=== PATIENT | female | born 1985 | race Caucasian/White ===

== ENCOUNTER → 2016-11-23 | Outpatient (CLI) | payer BC, OTHER ==
[~2016-11-23] MED LIST: PRENTAB26 PO
== END | disposition home or self-care (01) ==
LOC: C.PAPS 11:49
PROVIDERS: ATTEND Obstetrics & Gynecology
DX: Z01.419 Encounter for gynecological examination (general) (routine) without abnormal findings (principal)

== ENCOUNTER → 2017-10-10 | Outpatient (CLI) | payer OTHER ==
[~2017-10-10] MED LIST changes: +BCPILLS PO; +CIPR-255 PO; +CIPR1TAB11 PO
--- NOTE | 2017-10-10 17:32 | DIAGNOSTIC IMAGING REPORT ---
KUB HISTORY: Acute right-sided flank pain with fever. Concern for possible kidney stones. Prior left sided nephrectomy R10.9 Flank pain, [id number] Feverplease eval for right stone. P COMPARISON: None. FINDINGS: The bowel gas pattern is non-obstructive. Surgical clips project over the left hemiabdomen. There is no organomegaly. No right-sided nephrolithiasis or ureteral calculi identified. There is a punctate radiodensity which projects over the region of the inferior pole left kidney. There is moderate stool volume of the splenic flexure and descending colon. No pneumoperitoneum or pneumatosis. No fracture. Probable bone island of the right femoral neck, 11 mm. IMPRESSION: 1. No right-sided nephrolithiasis or ureteral calculi identified. 2. Moderate stool volume of the splenic flexure and descending colon obscures the left renal shadow. There is an associated punctate radiodensity which projects over the inferior pole left kidney suggesting fecal debris or small left-sided kidney stone. Electronically signed by: Chalino Maurer M.D. 10/10/2017 5:31 PM Dictated Date/Time: 10/10/2017 5:28 PM
[2017-10-10 17:35] LABS: BASO % 0.1 %; BASO ABS # 0.01 K/uL (0-0.2); HEMATOCRIT 38.6 % (37-47); HEMOGLOBIN 13.2 g/dL (12.0-16.0); IG# 0.04 K/uL (0.00-0.02); LYMPH % 6.3 %; LYMPH ABS # 1.15 K/uL (1.2-3.4); MEAN CELL VOLUME 88.9 fL (80-100); MEAN CORPUSCULAR HEMOGLOBIN 30.4 pg (25-34); MEAN CORPUSCULAR HGB CONC 34.2 g/dl (32-36); MEAN PLATELET VOLUME 11.2 fL (7.4-10.4); MONO % 6.4 %; MONO ABS # 1.18 K/uL (0.11-0.59); NEUT ABS # 15.98 K/uL (1.4-6.5); PLATELET COUNT 158 K/uL (130-400); RED CELL DISTRIBUTION WIDTH CV 12.6 % (11.5-14.5); WHITE BLOOD COUNT 18.36 K/uL (4.8-10.8)
[2017-10-10 18:01] LABS: BLOOD UREA NITROGEN 10 mg/dl (7-18); CALCIUM 8.6 mg/dl (8.5-10.1); CARBON DIOXIDE 29 mmol/L (21-32); CREATININE 1.15 mg/dl (0.60-1.20); GLUCOSE 136 mg/dl (70-99); POTASSIUM 3.2 mmol/L (3.5-5.1); SODIUM 136 mmol/L (136-145)
== END | disposition home or self-care (01) ==
LOC: C.RAD 16:59
PROVIDERS: ATTEND Nurse Practitioner
DX: R50.9 Fever, unspecified (principal); R10.9 Unspecified abdominal pain; R93.422 Abnormal radiologic findings on diagnostic imaging of left kidney

== ENCOUNTER → 2017-10-10 | Outpatient (CLI) | payer OTHER | END | disposition home or self-care (01) | LOC: C.LABSPEC 17:30 | PROVIDERS: ATTEND Nurse Practitioner | DX: R39.9 Unspecified symptoms and signs involving the genitourinary system (principal) ==

== ENCOUNTER 2017-10-11 10:59 | Inpatient (IN) | payer OTHER ==
[~2017-10-11] VITALS: Ht 160 cm; Wt 69.3 kg
[~2017-10-11 10:59] MED LIST changes: -BCPILLS PO; -CIPR-255 PO; -CIPR1TAB11 PO
[2017-10-11 11:45] VITALS: BP 109/73; PULSE 112; TEMP 36.8; O2SAT 99; Ht 160 cm; Wt 69.3 kg
[2017-10-11] MEDS ORDERED: CIPR1TAB11 PO (12:30)
[2017-10-11] MEDS ORDERED: BCPILLS PO (12:30)
[2017-10-11] MEDS ORDERED: CEFEPIME IV 2,000 MG in DEXTROSE 5% 100ML 100 ML IV ONE (13:03)
[2017-10-11] MEDS ORDERED: MAGNESIUM HYDROXIDE SUSP 30 ML UDC PO PRN (13:15)
[2017-10-11] MEDS ORDERED: OXYCODONE/ACETAMINOPHEN 5-325 TAB PO STA (13:19)
[2017-10-11] MEDS ORDERED: OXYCODONE/ACETAMINOPHEN 5-325 TAB ONE (13:22)
[2017-10-11] MEDS ORDERED: CEFEPIME IV 2,000 MG in SYRINGE 7.5 ML IV STA (13:22)
[2017-10-11] MEDS: SODIUM CHLORIDE 0.9% 1000ML 1,000 ML IV SCH (13:54)
--- NOTE | 2017-10-11 13:54 | History and Physical ---
History & Physical Date & Time of Service: Oct 11, 2017 at 13:34 Chief Complaint: Pyelonephritis, Bacteremia Primary Care Physician: Gonzales Brock M.D. History of Present Illness Source: patient Ms. Edward is a 32 y/o female with PMHx of L Nephrectomy (Donation) who presents to [facility] as a direct for Gram Neg UCx and BCx. She states symptoms started on 10/08 with fevers and R flank pain. She has been utilizing Tylenol and a heating pad with temporary relief of her symptoms. She then developed vomiting on 10/09 but this currently resolved. Her R flank pain is currently a 8-9 /10 and radiates to the R mid-lower abdomen and is sharp in quality. She states her chills makes this worse and she currently is constantly moving due to discomfort. She denies dysuria, hematuria, or frequency. She denies and states her menses is to start today vs tomorrow. She denies H/O kidney stone and no evidence on KUB performed as outpatient. She has noticed her urine being "bubbly" and her UA in office showed +proteins, +RBC, + leuks and cx with gram neg bacilli. She was prescribed Ciprofloxacin on 10/10 and did take one tablet today. Past Medical/Surgical History 1. S/P L Nephrectomy (Donation) 2. S/P Vaginal x 2 3. Fibroadenoma of Breast Family History Breast CA Diabetes mellitus Graves Disease Hypertension Spina Bifida Stroke Social History Smoking Status: Never Smoker Smokeless Tobacco Use: No Alcohol Use: none Drug Use: none Marital Status: Housing status: lives with significant other Occupational Status: employed Immunizations History of Influenza Vaccine: Unknown History of Tetanus Vaccine?: Unknown Allergies Coded Allergies: Codeine (Verified Adverse Reaction, Mild, DIZZINESS, 08/30/15) Home Medications Scheduled Control Pills ( Control Pills), 1 TAB PO DAILY Ciprofloxacin Tab (Cipro), MG PO BID Review of Systems Constitutional: + fever, + chills Respiratory: No cough, No shortness of breath Cardiovascular: No chest pain, No palpitations Abdomen: + pain (R mid-abdomen - radiation from back - R Flank Pain), + nausea , + vomiting (RESOLVED), No diarrhea, No constipation, No GI bleeding Musculoskeletal: No swelling, No calf pain Genitourinary - Female: No dysuria, No urinary frequency, No hematuria, No vaginal bleeding, No vaginal discharge, No Hematologic / Lymphatic: No abnormal bleeding/bruising, No clotting problems Integumentary: No rash Physical Exam Vital Signs Date Time Temp Pulse Resp B/P (MAP) Pulse Ox O2 Delivery O2 Flow Rate FiO2 10/11/17 11:45 36.8 112 18 109/73 (85) 99 Room Air 10/11/17 11:45 36.8 18 109/73 Room Air General Appearance: WD/WN, + mild distress (pain-related/uncomfortable) Head: normocephalic, atraumatic Eyes: sclerae normal ENT: hearing grossly normal Neck: supple, no JVD, trachea midline Respiratory/Chest: lungs clear, normal breath sounds, no respiratory distress, no accessory muscle use Cardiovascular: regular rate, rhythm, no gallop, no murmur Abdomen/GI: normal bowel sounds, soft, + tenderness (to deep palpation of R mid -low abdomen), + pertinent finding (No acute abdomen; no guarding; no rigidity) Back: + right CVA tenderness Extremities/Musculoskelatal: normal inspection, no pedal edema Neurologic/Psych: alert, oriented x 3 Skin: normal color, warm/dry Impression Assessment and Plan Ms. Edward is a 32 y/o female with PMHx of L Nephrectomy (Donation) who presents to [facility] as a direct for Gram Neg UCx and BCx. She states symptoms started on 10/08 with fevers and R flank pain. 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 - would put her at possible increased risked of resistant organisms and will cover more aggressively until sensitivities populate - Cefepime 2 g IV BID with lactobacillus - NSS at 75 mL/hr - Morphine IV PRN and K-Pad for pain management - CT Abd/Pelvis - further evaluate R kidney and evaluate further for stone or hydro S/P L Nephrectomy: - Kidney function WNL - continue to monitor and avoid nephrotoxic agents when necessary DVT Prophylaxis: Heparin 5000 units SC BID Code Status: FULL RESUSCITATION Disposition: - Continue to trend outpatient cultures - once clinically improving will obtain repeat BCx for sterility - Likely need for Abx x 14 days total - pending sensitivities will convert to oral agents I personally interviewed and examined the patient. I agree with history of present illness and physical exam mentioned above, I also performed my own history taking and examination. Past medical history and review of system has been obtained by myself I reviewed all pertinent labs and studies Reviewed current medications I discussed and formulated of the assessment and plan mentioned above. Please refer to the Summary mentioned below. 52 years old female with right sided nephrectomy as she donated her kidney to her presented with left sided pyelonephritis, also has gram-negative rods bacteremia and UTI present on admission, CT scan of abdomen showed the pyelonephritis but no obstructive uropathy As she works in the physician office, healthcare associated bacterial infection was considered, she was started on cefepime plus lactobacillus until culture results are back. Blood culture and urine cultures were repeated, 4 hour record and to check on the bed in the bacterial bacteremia Blood cultures need to be repeated every other day until clearance, if they stay positive more than 1 day after initiating antibiotics, consider 2-D echo rule out endocarditis. Follow-up renal function continue IV fluid hydration. General Appearance: not in acute distress Eyes: normal Sclerae, extraocular muscle intact ENT: hearing grossly normal Neck: supple Respiratory/Chest: normal air entry bilateral ,no respiratory distress, no accessory muscle use Cardiovascular: regular rate, rhythm, no systolic murmur Abdomen: Some tenderness in right flank Extremities: no edema Neurologic/Psychiatric: Awake alert oriented times place and person moves all extremities sensation intact cranial nerves II-12 appear to be intact Skin: normal color, warm/dry, no rash Michael Lord MD, [facility] Level of Care Med/Surg Advanced Directives Existing Living Will: No Existing Power of Technologies Division Chair: No Resuscitation Status FULL RESUSCITATION VTE Prophylaxis VTE Risk Assessment Done? Y/N: Yes Risk Level: Moderate Given or contraindicated: Unfractionated heparin SQ Social Service Consult None Apply
[2017-10-11 14:13] LABS: PTT PATIENT 29.6 SECONDS (21.0-31.0)
--- NOTE | 2017-10-11 14:43 | DIAGNOSTIC IMAGING REPORT ---
ABDOMEN AND PELVIS CT WITHOUT CONTRAST CT DOSE: 414.14 mGy.cm HISTORY: Acute sumanth nephritis with prior left-sided nephrectomy Pyelonephritis - S/P L Nephrectomy - R/O [place] and Stone TECHNIQUE: Multiaxial CT images of the abdomen and pelvis were performed without contrast. A dose lowering technique was utilized adhering to the principles of ALARA. COMPARISON STUDY: KUB 10/10/2017. FINDINGS: Lung bases are clear. No pneumatosis or pneumoperitoneum identified. Imaged inferior cardiac chambers are unremarkable. The liver, gallbladder, spleen, pancreas and adrenal glands are within normal limits. Prior left-sided nephrectomy. There is moderate amount of right-sided perinephric and periureteral inflammatory stranding with mild dilation of the proximal right ureter. No drainable fluid collections, obstructing mass or calculus identified. Urinary bladder, uterus and adnexa are within normal limits. Mild free pelvic fluid is noted within the cul-de-sac. Aorta is normal in course and caliber. No bulky retroperitoneal adenopathy identified. There is no bowel obstruction or focal bowel wall thickening. The appendix is not definitively seen. No secondary signs of acute appendicitis. Soft tissues are unremarkable. Bones appear intact. IMPRESSION: 1. Moderate right-sided perinephric and periureteral inflammatory stranding with mild dilation of the proximal right ureter without obstructing calculus identified. These findings suggest pyelonephritis with ureteritis or reactive sequela secondary to recently passed calculus. Correlate with urinalysis and patient history. 2. Prior left-sided nephrectomy. Electronically signed by: Chalino Maurer M.D. 10/11/2017 2:41 PM Dictated Date/Time: 10/11/2017 2:34 PM
[2017-10-11 15:30] VITALS: BP 121/79; PULSE 111; TEMP 36.6; O2SAT 100
[2017-10-11] MEDS: ACETAMINOPHEN 325 MG TAB PO PRN ×2 (17:07→23:45)
[2017-10-11] MEDS: LACTOBACILLUS ACIDOPHILUS (FLORANEX) TAB PO SCH (18:16)
[2017-10-11] MEDS: MoRPHine SULFATE 2 MG/ML CARP IV PRN (20:29)
[2017-10-11] MEDS: CEFEPIME IV 2,000 MG in SYRINGE 7.5 ML IV SCH (20:29)
[2017-10-11] MEDS: HEPARIN SOD 5000 UNIT/0.5 ML CARP SQ SCH (20:33)
[2017-10-11] MEDS ORDERED: CEFEPIME IV 2,000 MG in DEXTROSE 5% 100ML 100 ML IV SCH (21:00)
[2017-10-11 22:50] VITALS: BP 109/75; PULSE 107; TEMP 38.7; O2SAT 98
[2017-10-11 23:43] VITALS: TEMP 38
[2017-10-12] VITALS (8 sets, daily range): BP systolic 108–118; BP diastolic 70–77; PULSE 86–112; TEMP 36.8–38.4; O2SAT 97–98
[2017-10-12] MEDS: ONDANSETRON INJ 2 MG/ML 2 ML VIAL IV PRN ×3 (00:37→19:25)
[2017-10-12] MEDS: MoRPHine SULFATE 2 MG/ML CARP IV PRN ×5 (00:38→19:21)
[2017-10-12] MEDS: SODIUM CHLORIDE 0.9% 1000ML 1,000 ML IV SCH ×3 (03:09→17:30)
[2017-10-12 07:10] LABS: BASO % 0.1 %; BASO ABS # 0.01 K/uL (0-0.2); EOS % 0.1 %; EOS ABS # 0.01 K/uL (0-0.5); HEMATOCRIT 35.9 % (37-47); HEMOGLOBIN 12.2 g/dL (12.0-16.0); IG# 0.06 K/uL (0.00-0.02); LYMPH % 4.4 %; MEAN CELL VOLUME 87.8 fL (80-100); MEAN CORPUSCULAR HEMOGLOBIN 29.8 pg (25-34); MONO % 9.4 %; NEUT % 85.7 %; NEUT ABS # 15.45 K/uL (1.4-6.5); PLATELET COUNT 147 K/uL (130-400); RED CELL DISTRIBUTION WIDTH CV 12.9 % (11.5-14.5); RED CELL DISTRIBUTION WIDTH SD 41.5 fL (36.4-46.3); WHITE BLOOD COUNT 18.03 K/uL (4.8-10.8)
[2017-10-12] MEDS: ACETAMINOPHEN 325 MG TAB PO PRN ×2 (07:35→19:23)
[2017-10-12 07:42] LABS: ALBUMIN 2.7 gm/dl (3.4-5.0); CALCIUM 7.9 mg/dl (8.5-10.1); CREATININE 1.32 mg/dl (0.60-1.20); POTASSIUM 3.5 mmol/L (3.5-5.1)
[2017-10-12 07:46] LABS: TOTAL PROTEIN 6.8 gm/dl (6.4-8.2)
[2017-10-12] MEDS: CEFEPIME IV 2,000 MG in SYRINGE 7.5 ML IV SCH (08:37)
[2017-10-12] MEDS: LACTOBACILLUS ACIDOPHILUS (FLORANEX) TAB PO SCH ×3 (08:41→18:15)
[2017-10-12] MEDS: HEPARIN SOD 5000 UNIT/0.5 ML CARP SQ SCH ×2 (08:41→20:56)
--- NOTE | 2017-10-12 10:20 | Progress Note ---
Subjective Date of Service: Oct 12, 2017. Subjective Pt evaluation today including: conversation w/ patient, physical exam, chart review, lab review, review of studies Patient reports having fever, chills, and moderate right back pain. Patient denies nausea, vomiting. Review of Systems Constitutional: + fever, + chills Eyes: No worsening of vision, No eye pain ENT: No hearing loss, No unusual epistaxis Respiratory: No cough, No sputum, No wheezing, No shortness of breath Cardiac: No chest pain, No orthopnea Abdomen: No pain, No nausea Musculoskeletal: No joint pain Neurologic: No memory loss, No paralysis Psychiatric: No depression symptoms, No anhedonism Endo: No fatigue Skin: No rash, No itch All Other Systems: Reviewed and Negative Medications Current Inpatient Medications Medications (Trade) Dose Ordered Sig/Cabrera Route Start Time Stop Time Status Last Admin Dose Admin Acetaminophen (Tylenol Tab) 650 mg Q4H PRN PO 10/11/17 13:15 11/10/17 13:14 10/12/17 07:35 650 MG Al Hydrox/Mg Hydrox/Simethicone (Maalox Max Susp) 15 ml Q4H PRN PO 10/11/17 13:15 11/10/17 13:14 Magnesium Hydroxide (Milk Of Magnesia Susp) 30 ml Q6H PRN PO 10/11/17 13:15 11/10/17 13:14 Polyethylene (Miralax Powder Packet) 17 gm DAILY PRN PO 10/11/17 13:15 11/10/17 13:14 Ondansetron HCl (Zofran Inj) 4 mg Q6H PRN IV 10/11/17 13:15 11/10/17 13:14 10/12/17 00:37 4 MG Heparin Sodium (Porcine) (Heparin Sq 5000 Unit/0.5ml) 5,000 unit Q12H SQ 10/11/17 21:00 11/10/17 20:59 Sodium Chloride 1,000 ml @ 75 mls/hr [id number] IV 10/11/17 13:15 11/10/17 13:14 10/12/17 03:09 75 MLS/HR Lactobacillus Acidophilus (Floranex Tab) 4 tab TIDM PO 10/11/17 17:45 11/10/17 17:44 10/12/17 08:41 4 TAB Morphine Sulfate (MoRPHine SULFATE INJ) 1 mg Q3H PRN IV 10/11/17 13:15 10/25/17 13:14 10/12/17 00:38 1 MG Morphine Sulfate (MoRPHine SULFATE INJ) 2 mg Q3H PRN IV 10/11/17 13:15 10/25/17 13:14 10/12/17 05:51 2 MG Cefepime HCl 2000 mg/Syringe 20 ml @ 5 mls/min Q12H IV 10/11/17 21:00 10/21/17 20:59 10/12/17 08:37 5 MLS/MIN Objective Vital Signs Date Time Temp Pulse Resp B/P (MAP) Pulse Ox O2 Delivery O2 Flow Rate FiO2 10/12/17 08:10 Room Air 10/12/17 07:18 37.9 10/12/17 07:17 38.4 112 20 118/77 (91) 98 Room Air 10/12/17 03:22 36.8 10/12/17 00:40 37.6 10/11/17 23:43 38.0 10/11/17 23:40 Room Air 10/11/17 22:50 38.7 107 16 109/75 (86) 98 Room Air 10/11/17 15:30 36.6 111 18 121/79 (93) 100 Room Air 10/11/17 15:08 Room Air 10/11/17 11:45 36.8 112 18 109/73 (85) 99 Room Air 10/11/17 11:45 36.8 18 109/73 Room Air Physical Exam General Appearance: WD/WN, no apparent distress Eyes: normal inspection ENT: normal ENT inspection Neck: supple, no adenopathy Respiratory/Chest: chest non-tender, lungs clear, normal breath sounds Cardiovascular: regular rate, rhythm, no edema Abdomen: normal bowel sounds, non tender, soft, + pertinent finding (Mild CVA tenderness on right) Extremities: normal range of motion Neurologic/Psychiatric: alert, normal mood/affect, oriented x 3 Skin: normal color, warm/dry Lymphatic: no adenopathy Laboratory Results Last 24 Hours Test 10/11/17 13:49 10/11/17 15:50 10/11/17 19:05 10/12/17 06:49 Prothrombin Time 10.5 SECONDS Prothromb Time International Ratio 1.0 Activated Partial Thromboplast Time 29.6 SECONDS Partial Thromboplastin Ratio 1.1 Urine Test NEG Urine Color YELLOW Urine Appearance CLEAR Urine pH 6.5 Urine Specific [place] 1.008 Urine Protein 1+ Urine Glucose (UA) NEG Urine Ketones NEG Urine Occult Blood 1+ Urine Nitrite NEG Urine Bilirubin NEG Urine Urobilinogen NEG Urine Leukocyte Esterase MODERATE Urine WBC (Auto) >30 /hpf Urine RBC (Auto) 5-10 /hpf Urine Hyaline Casts (Auto) 0 /lpf Urine Epithelial Cells (Auto) >30 /lpf Urine Bacteria (Auto) 1+ White Blood Count 18.03 K/uL Red Blood Count 4.09 M/uL Hemoglobin 12.2 g/dL Hematocrit 35.9 % Mean Corpuscular Volume 87.8 fL Mean Corpuscular Hemoglobin 29.8 pg Mean Corpuscular Hemoglobin Concent 34.0 g/dl Platelet Count 147 K/uL Mean Platelet Volume 11.0 fL Neutrophils (%) (Auto) 85.7 % Lymphocytes (%) (Auto) 4.4 % Monocytes (%) (Auto) 9.4 % Eosinophils (%) (Auto) 0.1 % Basophils (%) (Auto) 0.1 % Neutrophils # (Auto) 15.45 K/uL Lymphocytes # (Auto) 0.80 K/uL Monocytes # (Auto) 1.70 K/uL Eosinophils # (Auto) 0.01 K/uL Basophils # (Auto) 0.01 K/uL RDW Standard Deviation 41.5 fL RDW Coefficient of Variation 12.9 % Immature Granulocyte % (Auto) 0.3 % Immature Granulocyte # (Auto) 0.06 K/uL Sodium Level 137 mmol/L Potassium Level 3.5 mmol/L Chloride Level 105 mmol/L Carbon Dioxide Level 24 mmol/L Anion Gap 8.0 mmol/L Blood Urea Nitrogen 10 mg/dl Creatinine 1.32 mg/dl Est Creatinine Clear Calc Drug Dose 58.2 ml/min Estimated GFR () 62.6 Estimated GFR (Non- 54.0 BUN/Creatinine Ratio 7.8 Random Glucose 134 mg/dl Calcium Level 7.9 mg/dl Magnesium Level 1.9 mg/dl Total Bilirubin 0.3 mg/dl Aspartate Amino Transf (AST/SGOT) 7 U/L Alanine Aminotransferase (ALT/SGPT) 14 U/L Alkaline Phosphatase 66 U/L Total Protein 6.8 gm/dl Albumin 2.7 gm/dl Globulin 4.1 gm/dl Albumin/Globulin Ratio 0.7 Assessment and Plan Acute pyelonephritis in a 32 yo female with left nephrectomy after donating a kidney to her spouse years ago. Severe Sepsis with acute kidney injury Patient has tachycardia and fever Patient was receiving 75 ml of NS per hour. Will increase to 200 ml/hr Patient will also obtain a 1 liter fluid bolus Patient had outpatient results of Urine Culture It is growing E. Coli sensitive to Cipro Will change to Cipro for evening dose. will continue to monitor input and output./ will obtain renal ultrasound tomorrow in AM. CT scan does not appear to have any signs of obstruction I spent 55 minutes on this case including management and face to face time with patient. dvt: heparin Continued [facility] stay due to: multiple IV medications needed Discharge planning: home
[2017-10-12] MEDS ORDERED: SODIUM CHLORIDE 0.9% 1000ML 1,000 ML IV ONE (11:15)
[2017-10-12] MEDS: CIPROFLOXACIN / D5W 400 MG in PREMIXED IN D5W 200 ML IV SCH ×2 (12:15→20:58)
--- NOTE | 2017-10-12 19:03 | DIAGNOSTIC IMAGING REPORT ---
EXAMINATION: RENAL ULTRASOUND CLINICAL HISTORY: right pyelonephritis COMPARISON STUDY: CT scan dated 10/11/2017 FINDINGS: The right kidney measures 15.2 cm. The left kidney is surgically absent there is no hydronephrosis. The right kidney is slightly echogenic. There is trace perinephric fluid adjacent to the lower pole. There is no ultrasonographic evidence of a right renal abscess. No bladder abnormalities are visualized. A right ureteral jet was visualized IMPRESSION : 1. Surgically absent left kidney 2. No evidence of right renal hydronephrosis 3. Very slight increase in right cortical echogenicity 4. Trace perinephric fluid adjacent to the lower pole of the right kidney Electronically signed by: Abebe Jeronimo M.D. 10/12/2017 7:02 PM Dictated Date/Time: 10/12/2017 6:59 PM
[2017-10-12] MEDS ORDERED: OXYCODONE/ACETAMINOPHEN 5-325 TAB PO PRN (20:15)
[2017-10-13] MEDS: SODIUM CHLORIDE 0.9% 1000ML 1,000 ML IV SCH ×5 (00:18→17:24)
[2017-10-13 02:57] VITALS: PULSE 104; O2SAT 96
[2017-10-13 06:57] VITALS: BP 118/78; PULSE 98; TEMP 37.1; O2SAT 99
[2017-10-13] MEDS: POLYETHYLENE (MIRALAX) 17 GM PACK PO PRN ×2 (07:28→21:41)
[2017-10-13] MEDS: HEPARIN SOD 5000 UNIT/0.5 ML CARP SQ SCH ×2 (07:28→21:00)
[2017-10-13] MEDS: LACTOBACILLUS ACIDOPHILUS (FLORANEX) TAB PO SCH ×3 (07:29→18:11)
[2017-10-13] MEDS: ALUMINUM/MAGNESIUM/SIMETH (MAALOX MAX) 30 ML UDC PO PRN ×3 (07:29→21:41)
[2017-10-13] MEDS: CIPROFLOXACIN / D5W 400 MG in PREMIXED IN D5W 200 ML IV SCH ×2 (07:32→21:33)
[2017-10-13 07:43] LABS: HEMATOCRIT 31.1 % (37-47); HEMOGLOBIN 10.8 g/dL (12.0-16.0); MEAN CELL VOLUME 88.4 fL (80-100); MEAN CORPUSCULAR HEMOGLOBIN 30.7 pg (25-34); MEAN CORPUSCULAR HGB CONC 34.7 g/dl (32-36); MEAN PLATELET VOLUME 10.7 fL (7.4-10.4); PLATELET COUNT 166 K/uL (130-400); RED CELL DISTRIBUTION WIDTH CV 13.5 % (11.5-14.5); RED CELL DISTRIBUTION WIDTH SD 43.6 fL (36.4-46.3); WHITE BLOOD COUNT 12.94 K/uL (4.8-10.8)
[2017-10-13 08:05] LABS: CALCIUM 7.5 mg/dl (8.5-10.1); CREATININE 0.95 mg/dl (0.60-1.20); POTASSIUM 3.7 mmol/L (3.5-5.1)
[2017-10-13] MEDS: ACETAMINOPHEN 325 MG TAB PO PRN ×3 (08:45→23:28)
[2017-10-13] MEDS ORDERED: SODIUM CHLORIDE 0.9% 500ML 500 ML IV ONE (10:30)
[2017-10-13 12:00] VITALS: TEMP 36.7
[2017-10-13 15:43] VITALS: BP 125/83; PULSE 83; TEMP 36.7; O2SAT 98
--- NOTE | 2017-10-13 21:59 | Progress Note ---
Subjective Date of Service: Oct 13, 2017. Subjective Pt evaluation today including: conversation w/ patient, physical exam 32 yo female with urosepsis. Patient reports feeling better. However she still has symptoms of subjective fevers. Patient denies nausea, vomiting, diarrhea. Review of Systems Constitutional: No fever, No chills Eyes: No worsening of vision ENT: No hearing loss, No unusual epistaxis Respiratory: No cough, No sputum Cardiac: No chest pain Abdomen: No pain, No nausea Musculoskeletal: No joint pain Female : No dysuria, No urinary frequency Neurologic: No memory loss Heme: No abnormal bleeding/bruising Endo: No fatigue Skin: No rash, No itch All Other Systems: Reviewed and Negative Medications Current Inpatient Medications Medications (Trade) Dose Ordered Sig/Cabrera Route Start Time Stop Time Status Last Admin Dose Admin Acetaminophen (Tylenol Tab) 650 mg Q4H PRN PO 10/11/17 13:15 11/10/17 13:14 10/13/17 15:55 650 MG Al Hydrox/Mg Hydrox/Simethicone (Maalox Max Susp) 15 ml Q4H PRN PO 10/11/17 13:15 11/10/17 13:14 10/13/17 21:41 15 ML Magnesium Hydroxide (Milk Of Magnesia Susp) 30 ml Q6H PRN PO 10/11/17 13:15 11/10/17 13:14 Polyethylene (Miralax Powder Packet) 17 gm DAILY PRN PO 10/11/17 13:15 11/10/17 13:14 10/13/17 21:41 17 GM Ondansetron HCl (Zofran Inj) 4 mg Q6H PRN IV 10/11/17 13:15 11/10/17 13:14 10/12/17 19:25 4 MG Heparin Sodium (Porcine) (Heparin Sq 5000 Unit/0.5ml) 5,000 unit Q12H SQ 10/11/17 21:00 11/10/17 20:59 10/13/17 07:28 5,000 UNIT Sodium Chloride 1,000 ml @ 200 mls/hr Q5H IV 10/11/17 13:15 11/10/17 13:14 10/13/17 17:24 200 MLS/HR Lactobacillus Acidophilus (Floranex Tab) 4 tab TIDM PO 10/11/17 17:45 11/10/17 17:44 10/13/17 18:11 4 TAB Morphine Sulfate (MoRPHine SULFATE INJ) 1 mg Q3H PRN IV 10/11/17 13:15 10/25/17 13:14 10/12/17 00:38 1 MG Morphine Sulfate (MoRPHine SULFATE INJ) 2 mg Q3H PRN IV 10/11/17 13:15 10/25/17 13:14 10/12/17 19:21 2 MG Ciprofloxacin/ Dextrose 400 mg/ Prmx 200 ml @ 100 mls/hr Q12 IV 10/12/17 11:15 10/22/17 11:14 10/13/17 21:33 100 MLS/HR Oxycodone/ Acetaminophen (Percocet 5-325mg Tab) 1 tab Q4H PRN PO 10/12/17 20:15 10/26/17 20:14 Objective Vital Signs Date Time Temp Pulse Resp B/P (MAP) Pulse Ox O2 Delivery O2 Flow Rate FiO2 10/13/17 15:50 Room Air 10/13/17 15:43 36.7 83 18 125/83 (97) 98 Room Air 10/13/17 12:00 36.7 10/13/17 07:45 Room Air 10/13/17 06:57 37.1 98 18 118/78 (91) 99 Room Air 10/13/17 02:57 104 20 96 Oxymask 6.0 10/13/17 00:20 Room Air 10/12/17 22:58 36.8 86 16 108/70 (83) 98 Room Air Physical Exam General Appearance: WD/WN, no apparent distress Eyes: normal inspection ENT: normal ENT inspection Neck: supple, no adenopathy Respiratory/Chest: chest non-tender, lungs clear, normal breath sounds Cardiovascular: regular rate, rhythm, no edema Abdomen: normal bowel sounds, non tender, soft Extremities: normal range of motion Skin: normal color Lymphatic: no adenopathy Laboratory Results Last 24 Hours Test 10/13/17 07:00 White Blood Count 12.94 K/uL Red Blood Count 3.52 M/uL Hemoglobin 10.8 g/dL Hematocrit 31.1 % Mean Corpuscular Volume 88.4 fL Mean Corpuscular Hemoglobin 30.7 pg Mean Corpuscular Hemoglobin Concent 34.7 g/dl RDW Standard Deviation 43.6 fL RDW Coefficient of Variation 13.5 % Platelet Count 166 K/uL Mean Platelet Volume 10.7 fL Sodium Level 139 mmol/L Potassium Level 3.7 mmol/L Chloride Level 109 mmol/L Carbon Dioxide Level 23 mmol/L Anion Gap 7.0 mmol/L Blood Urea Nitrogen 6 mg/dl Creatinine 0.95 mg/dl Est Creatinine Clear Calc Drug Dose 80.9 ml/min Estimated GFR () 93.2 Estimated GFR (Non- 80.4 BUN/Creatinine Ratio 6.8 Random Glucose 85 mg/dl Calcium Level 7.5 mg/dl Assessment and Plan Urosepsis and Acute pyelonephritis in a 32 yo female with left nephrectomy after donating a kidney to her spouse years ago. Sepsis Patient continues to have tachycardia Patient has not had fever in past 12 hours. Patient on 250ml/hr Patient has a negative balance, likely explained by improvement in sepsis as the vasodilatation is improving. Patient had outpatient results of Urine Culture It is growing E. Coli sensitive to Cipro Will continue with cipro will continue to monitor input and output./ Renal u/s showed some trace perinephric fluid. CT scan does not appear to have any signs of obstruction will repeat cbc and prp in AM. dvt: heparin Continued [facility] stay due to: multiple IV medications needed Discharge planning: home
[2017-10-13 23:02] VITALS: BP 127/84; PULSE 85; TEMP 36.8; O2SAT 100
[2017-10-13 23:20] VITALS: O2SAT 100
[2017-10-14] MEDS: SODIUM CHLORIDE 0.9% 1000ML 1,000 ML IV SCH ×2 (00:37→05:37)
[2017-10-14] MEDS: ALUMINUM/MAGNESIUM/SIMETH (MAALOX MAX) 30 ML UDC PO PRN (04:42)
[2017-10-14] MEDS: ACETAMINOPHEN 325 MG TAB PO PRN (04:42)
[2017-10-14 06:35] LABS: HEMATOCRIT 28.5 % (37-47); HEMOGLOBIN 9.6 g/dL (12.0-16.0); MEAN CORPUSCULAR HEMOGLOBIN 29.6 pg (25-34); MEAN CORPUSCULAR HGB CONC 33.7 g/dl (32-36); MEAN PLATELET VOLUME 10.8 fL (7.4-10.4); PLATELET COUNT 181 K/uL (130-400); RED CELL DISTRIBUTION WIDTH CV 13.4 % (11.5-14.5); RED CELL DISTRIBUTION WIDTH SD 43.8 fL (36.4-46.3); WHITE BLOOD COUNT 8.75 K/uL (4.8-10.8)
[2017-10-14 07:05] LABS: CALCIUM 7.7 mg/dl (8.5-10.1); CREATININE 0.89 mg/dl (0.60-1.20); POTASSIUM 3.7 mmol/L (3.5-5.1)
[2017-10-14 07:52] VITALS: BP 125/81; PULSE 72; TEMP 36.9; O2SAT 97
[2017-10-14] MEDS: CIPROFLOXACIN / D5W 400 MG in PREMIXED IN D5W 200 ML IV SCH (08:39)
[2017-10-14] MEDS: LACTOBACILLUS ACIDOPHILUS (FLORANEX) TAB PO SCH (08:39)
[2017-10-14] MEDS: HEPARIN SOD 5000 UNIT/0.5 ML CARP SQ SCH (08:39)
--- NOTE | 2017-10-14 10:14 | Discharge Summary ---
Discharge Summary Date of Service Oct 14, 2017. Discharge Summary Admission Date: Oct 11, 2017 at 11:34 Discharge Date: Oct 14, 2017 Discharge Disposition: Home Principal Diagnosis: Pyelonephritis/ urosepsis Immunizations: Have You Had Influenza Vaccine: Unknown History of Tetanus Vaccine?: Unknown Medication Reconciliation New Medications: Ciprofloxacin Hcl (Cipro) 500 Mg Tab 1 TAB PO BID for 10 Days, #20 TAB Continued Medications: Control Pills ( Control Pills) Tab 1 TAB PO DAILY, TAB Discontinued Medications: Ciprofloxacin Tab (Cipro) 250 Mg Tab MG PO BID, TAB patient unsure of dose Discharge Exam Review of Systems: Constitutional: No fever, No chills ENT: No hearing loss, No unusual epistaxis Respiratory: No cough, No sputum Cardiovascular: No chest pain, No orthopnea Abdomen: No pain, No nausea Musculoskeletal: No joint pain Neurologic: No memory loss, No paralysis Psychiatric: No depression symptoms, No anhedonism Endocrine: No fatigue Hematologic / Lymphatic: No abnormal bleeding/bruising Integumentary: No rash Physical Exam: General Appearance: WD/WN, no apparent distress Neck: supple, no adenopathy Respiratory/Chest: chest non-tender, lungs clear, normal breath sounds Cardiovascular: regular rate, rhythm, no edema, no gallop Abdomen / GI: normal bowel sounds, non tender, soft, + pertinent finding ( NO CVA tenderness) Extremities: normal inspection Skin: normal color, warm/dry Lymphatic: no adenopathy Hospital Course Bacteremia and Urosepsis and Acute pyelonephritis in a 32 yo female with left nephrectomy after donating a kidney to her spouse years ago. Sepsis Patient admitted with tachycardia. Patient responded with IV Fluids, required about 5 liters. Patient was placed initially on broad spectrum antibiotics, but was then switched to cipro, once sensitivities from urine culture were obtained. Patient tachycardia resolved by day 3. Patient has not had fever in past 36 hours prior to discharge. CBC resolved. Bacteremia was noted on outpatient exam. However, repeat blood cultures were negative. Patient had outpatient results of Urine Culture It is growing E. Coli sensitive to Cipro Will continue with cipro will continue to monitor input and output. Renal u/s showed some trace perinephric fluid. CT scan does not appear to have any signs of obstruction will recommend f/u clinically to determine if U/S of kidney is required. dvt: heparin Total Time Spent: Greater than 30 minutes This includes examination of the patient, discharge planning, medication reconciliation, and communication with other providers. Discharge Instructions Please refer to the electronic Patient Visit Report (Discharge Instructions) for additional information. Follow-Up As noted on discharge instructions. Additional Copies To Gonzales Brock M.D.
[2017-10-14] MEDS ORDERED: CIPR-255 PO (10:20)
--- NOTE | 2017-10-14 10:22 | Discharge Instructions ---
Discharge Instructions Date of Service Oct 14, 2017. Admission Reason for Admission: Pyelonephritis, Bacteremia Discharge Discharge Diagnosis / Problem: Pylenephritis/ urospesis Discharge Goals Goal(s): Decrease discomfort, Improve function Activity Recommendations Activity Limitations: resume your previous activity . Instructions / Follow-Up Instructions / Follow-Up Follow up with PCP within one week. Continue with antibiotic treatment for 5 more days. Be sure to take it with meals to decrease nausea/ vomiting. Drink plenty of fluids to maintain clear urine. Current Hospital Diet Patient's current hospital diet: Regular Diet Discharge Diet Recommended Diet: Regular Diet Pending Studies Studies pending at discharge: no Medical Emergencies . Who to Call and When: Medical Emergencies: If at any time you feel your situation is an emergency, please call 911 immediately. . Non-Emergent Contact Non-Emergency issues call your: Primary Care Provider Call Non-Emergent contact if: you have a fever, your pain is worsening . . "Provider Documentation" section prepared by Ced Qureshi. . VTE Core Measure Inpt VTE Proph given/why not?: Unfractionated heparin SQ
[2017-10-14 11:21] VITALS: BP 125/81; PULSE 72; TEMP 36.9; O2SAT 97
--- NOTE | 2017-10-19 09:15 | EDITING REQUIRED CODING QUERY ---
SEPSIS To promote full compliance with coding requirements relating to patient care, physician participation is requested in all cases of imaging account manager uncertainty. Please assist us with the question(s) below: In responding to this query, please exercise your independent professional judgement. The fact that a question is asked does not imply that any particular answer is desired or expected. We appreciate your clarification on this issue. Throughout the medical record, you have clearly documented a localized infection and your patient has clinical evidence of a generalized sepsis or severe sepsis. The term urosepsis is a nonspecific entity and is coded as an UTI. If the patient has sepsis, severe sepsis, from an urinary source or some other source, please clarify in your response below. The medical record reflects the following clinical findings: (With dates as appropriate) (Body temperature of >38.3 C(101 F) or <36 C(96.8F), pulse >90/minute, respirations >20/minute, WBC count >12,000 or <4,000, altered mental status, significant edema or positive fluid balance, hyperglycemia without diabetes, hypotension, metabolic acidosis (elev. lactate level, anion gap or reduced blood pH), shock, positive blood culture (enter organism) ( )Bacteremia (Nonspecific laboratory finding of bacteria in the blood) Specify Organism ( ) Present on Admission ( ) Not present on admission ( x ) Unable to clinically determine ( ) Septicemia (Systemic disease associated with the presence of pathogenic microorganisms in the blood): Specify Organism ( ) Present on Admission ( ) Not present on admission ( ) Unable to clinically determine ( ) Sepsis Specify Organism Specify Associated Condition/Diagnosis ( ) Present on Admission ( ) Not present on admission ( ) Unable to clinically determine ( x ) Severe Sepsis (Sepsis associated with acute organ dysfunction) Specify Organism Specify Associated Condition/Diagnosis ( x) Present on Admission ( ) Not present on admission ( ) Unable to clinically determine ( ) Septic Shock (Severe sepsis with acute circulatory failure, unexplained by other causes) ( ) Present on Admission ( ) Not present on admission ( ) Unable to clinically determine ( ) Other, patient has:
== END 2017-10-14 12:11 | disposition home or self-care (01) | DRG 872 ==
LOC: C.MSW 11:34
PROVIDERS: ADMIT Internal Medicine; ATTEND Internal Medicine Sports Medicine
DX: A41.9 Sepsis, unspecified organism (principal); N17.9 Acute kidney failure, unspecified; N10 Acute pyelonephritis; N39.0 Urinary tract infection, site not specified; R65.20 Severe sepsis without septic shock; Z90.5 Acquired absence of kidney; D72.829 Elevated white blood cell count, unspecified; Z80.3 Family history of malignant neoplasm of breast; Z83.3 Family history of diabetes mellitus; Z82.49 Family history of ischemic heart disease and other diseases of the circulatory system; Z82.3 Family history of stroke

== ENCOUNTER → 2017-10-30 | Outpatient (CLI) | payer OTHER ==
[~2017-10-30] MED LIST changes: +BCPILLS PO; +CIPR-255 PO; -PRENTAB26 PO
== END | disposition home or self-care (01) ==
LOC: C.LABSPEC 14:50
PROVIDERS: ATTEND Nurse Practitioner
DX: N12 Tubulo-interstitial nephritis, not specified as acute or chronic (principal)

== ENCOUNTER 2020-04-03 15:33 | Inpatient (IN) ==
[2020-04-03] MEDS ORDERED: OXYTOCIN 30 UNITS/500 ML BAG IV PRN ×3 (15:45→19:50)
[2020-04-03] MEDS: LACTATED RINGER'S 1,000 ML IV PRN ×2 (16:00→18:21)
--- NOTE | 2020-04-03 16:01 | History & Physical Report ---
Date of Service April 03, 2020 Assessment & Plan (1) : 34 yo F F admitted to Labor and delivery after being in active labor at OBGYN office earlier this afternoon. 1) Supervised of a multigravid - heart monitoring - Tocometer for contraction monitoring - NPO with sips and chips - augmentation with pitocin or cytotec if necessary, unlikely to be necessary given progression from 4 cm in office to 6 cm on L&D - pain management with epidural per patient request (2) Supervision of normal intrauterine in multigravida: History of Present Illness Primary Care Provider: Gonzales Brock MD 40 weeks confirmed via LMP. Sent to L&D floor after seeing OB at office and found to be in labor. Has been attending OB appointments regularly. Currently taking no medications. H/o R kidney removal (donated to in 2009) - Monthly urine cultures - Pre- Cr 0.92 06/2019 Contractions: since 2:30 AM 04/03 Fluid or Blood loss: fluid loss Movement: active Labs Blood type: O+ Antibody screen: negative H.3 Hct: 33.5 Wbc: 11.69 (08/27); pending repeat today Plt: 277 (08/27); pending repeat today Rubella: immune VDRL/RPR: nonreactive Gonorrhea: negative Chlamydia: negative HIV: negative HBsAg: negative GBS:negative Glucose tolerance x2: negative Cr: 0.73 (09/26) Allergies Allergy/AdvReac Type Severity Reaction Status Date / Time codeine AdvReac Mild DIZZINESS Verified 04/03/20 15:07 Home Medications Home Medications Medication Instructions Recorded Confirmed Type prenat.vits,lai,zbq-[id number]-cqofa 1 tab PO DAILY 08/21/19 04/03/20 History cetirizine 10 mg tablet 10 mg PO DAILY 03/19/20 04/03/20 History Patient History Family History Mother Diabetes Thyroid disease Twins, both liveborn History of labor Father Heart disease Hypertension Dyslipidemia Kidney disease Sister Cerebral palsy Spina bifida Social History (Updated 08/21/19 @ 15:26 by Elizabeth Hurley) Preferred Language: Croatian Communication Ability: Effective Grey Roll Worker Required: No Beliefs That Will Affect Care: None marital status: marital status details: Fritz (38) [phone] Current Living Situation: Family Current Living Situation Comment: , 2 children current occupational status: employed current occupation: [employer] Other Information That Helps Us Care for You: No Feels Safe at Home: Yes Safety Concerns: Feels Safe At This Time Smoking Status: Never smoker Do You Dip or Chew Tobacco: No ; Hx Alcohol Use: No Hx Substance Use: No Review of Systems no fever, no chills and no fatigue no cough, no dyspnea and no wheezing + edema; no chest pain and no calf pain + abdominal pain and + cramping; no nausea, no vomiting, no constipation and no diarrhea/loose stools no dysuria and no difficulty urinating no back pain Physical Exam Constitutional: well developed and well nourished Respiratory: normal respiratory effort; no respiratory distress, no labored breathing and no cough Auscultation: no diminished lung sounds, no crackles, no rales, no rhonchi and no wheezes Cardiovascular: Rate/Rhythm: regular rate and regular rhythm Extremities: normal capillary refill and + pedal edema; no calf tenderness Gastrointestinal (Abdomen): Inspection/Auscultation: + abdomen distended and normal bowel sounds Percussion/Palpation: abdomen nontender and no guarding Genitourinary: Speculum/Bimanual Exam: + uterus enlarged OB Exam Abdomen: + fundal height Fundus: + firm and + relation to umbilicus (high above umbilicus); not tender Cervical Exam per OB: Dilation 6 cm Effacement 50% Station -2 Monitoring External Monitor Heart Monitor: Baseline HR 115 Moderate Variability Accelerations No Decels Tocodynamometer Contraction Frequency: moderate contractions Q3min Supervising Physician Co-Signing Physician Notes Resident Physician Supervision Note: I was present with Dr. Rock during the history and exam. I discussed the case with the resident and agree with the findings and plan as documented in the note. Any exceptions or clarifications are listed here: 34yo at 40 weeks, admitted in active labor. Patient desires epidural, anticipate . Documented By: Cirilo Hansen Jr, MD, FACOG Resident Activity Tracking Resident Involvement: Resident Care Provided Care Provided: OB Delivery
[2020-04-03] MEDS ORDERED: BUPIVACAINE 0.25% 30 ML VIAL ONE (16:04)
[2020-04-03] MEDS ORDERED: fentaNYL citrate 100 MCG/2 ML VIAL ONE (16:04)
[2020-04-03] MEDS ORDERED: ePHEDrine sulfate 50 MG/ML AMP ONE (16:04)
[2020-04-03] MEDS ORDERED: fentaNYL 2MCG/ML ROPIV 1.25MG/ML 100 ML BAG EPI ONE (16:05)
[2020-04-03 16:07] LABS: Hemoglobin 11.6 g/dL (12.0-16.0); Mean Corpuscular Hemoglobin 30.1 pg (25-34); Mean Corpuscular Volume 88.1 fL (80-100); Platelet Count 182 K/uL (130-400); RDW Standard Deviation 45.2 fL (36.4-46.3); Red Blood Count 3.86 M/uL (4.2-5.4); White Blood Count 11.83 K/uL (4.8-10.8)
[2020-04-03] MEDS ORDERED: ONDANSETRON INJ 2 MG/ML 2 ML VIAL IV PRN (16:14)
[2020-04-03] MEDS ORDERED: NALOXONE HCL 1 MG in SODIUM CHLORIDE 0.9% 1000ML 1,000 ML IV PRN (16:14)
[2020-04-03] MEDS ORDERED: fentaNYL 2MCG/ML ROPIV 1.25MG/ML 100 ML BAG EPI PRN (16:14)
[2020-04-03] MEDS ORDERED: NALOXONE HCL 0.4 MG/1 ML VIAL/CARP IV PRN (16:14)
[2020-04-03] MEDS ORDERED: NALBUPHINE HCL INJ 10 MG/ML AMP IV PRN (16:14)
[2020-04-03] MEDS ORDERED: DiphenhydrAMINE HCL 50 MG/ML VIAL IV PRN (16:14)
[2020-04-03] MEDS ORDERED: ePHEDrine sulfate 50 MG/ML AMP IV PRN (16:14)
--- NOTE | 2020-04-03 16:16 | Anesthesiology Consultation ---
Date of Service April 03, 2020 Assessment & Plan (1) Encounter for pre-operative examination: Chart Review Chart Review: Patient NOT seen in Pre Admission Testing and Acceptable Risk for Labor Epidural Consults Requested none History Height/Weight Weight: 92 kg Allergies Allergy/AdvReac Type Severity Reaction Status Date / Time codeine AdvReac Mild DIZZINESS Verified 04/03/20 15:07 Medications Home Medications Medication Instructions Recorded Confirmed Last Taken prenat.vits,lai,twj-oszw-vicjq 1 tab PO DAILY 08/21/19 04/03/20 Unknown cetirizine 10 mg tablet 10 mg PO DAILY 03/19/20 04/03/20 Unknown Active Medications Generic Name Dose Route Start Last Admin Trade Name Freq PRN Reason Stop Dose Admin Lactated Ringer's 1,000 mls @ 125 mls/hr 04/03/20 15:45 04/03/20 16:00 Lr IV 04/05/20 15:44 999 mls/hr .Q8H PRN Administration L&D Protocol Protocol Exercise / Class Metabolic Activity II 4-5 Yardwork/Stairs/Walk up hill Past Family History Family History Mother Diabetes Thyroid disease Twins, both liveborn History of labor Father Heart disease Hypertension Dyslipidemia Kidney disease Sister Cerebral palsy Spina bifida Past Anesthesia History No Hx of Anesthesia Complications and No Family Hx of Anesthesia Complications History of PONV No Hx of PONV and No Hx of Motion Sickness Social History Smoking Status: Never smoker Do You Dip or Chew Tobacco: No Hx Alcohol Use: No Hx Substance Use: No Physical Exam Vital Signs Last Vital Signs Temp 37.4 C 04/03/20 15:51 Pulse 81 04/03/20 16:29 Resp 20 04/03/20 15:53 BP 135/71 04/03/20 15:51 Pulse Ox 100 04/03/20 16:29 Testing Laboratory Results 04/03/20 15:59
[2020-04-03 16:25] LABS: Mean Corpuscular Hgb Conc 34.1 g/dL (32-36)
--- NOTE | 2020-04-03 19:08 | Labor Progress Brief Note ---
Date of Service April 03, 2020 Subjective Reason For Note: Routine Evaluation Assessment & Plan (1) Supervision of normal intrauterine in multigravida: - tracing Cat II, moderate variability - will begin 2nd stage Physical Exam Genitourinary: Cervix: Complete/(+)2 Results & Data ([facility]) Vital Signs (Past 12 Hours) Vital Signs Temp Pulse Resp BP Pulse Ox 04/03/20 19:04 79 100 04/03/20 18:59 71 100 04/03/20 18:58 68 121/71 04/03/20 18:54 73 100 04/03/20 18:49 62 100 04/03/20 18:44 58 L 118/68 100 04/03/20 18:39 67 98 04/03/20 18:34 63 99 04/03/20 18:29 65 123/69 100 04/03/20 18:24 67 100 04/03/20 18:19 70 100 04/03/20 18:15 18 04/03/20 18:14 59 L 99 04/03/20 18:13 61 121/72 04/03/20 18:09 61 100 04/03/20 18:04 62 99 04/03/20 18:00 16 04/03/20 17:59 69 99 04/03/20 17:58 60 123/73 04/03/20 17:54 76 99 04/03/20 17:49 65 100 04/03/20 17:44 64 122/70 100 04/03/20 17:39 65 100 04/03/20 17:34 84 99 04/03/20 17:29 79 99 04/03/20 17:28 65 117/69 04/03/20 17:24 64 98 04/03/20 17:19 63 100 04/03/20 17:14 65 125/68 99 04/03/20 17:09 72 99 04/03/20 17:04 71 100 04/03/20 16:59 64 100 04/03/20 16:56 74 124/76 04/03/20 16:54 68 99 04/03/20 16:53 75 123/70 04/03/20 16:50 72 122/67 04/03/20 16:49 71 100 04/03/20 16:47 71 124/69 04/03/20 16:44 72 126/72 100 04/03/20 16:41 77 125/71 04/03/20 16:39 74 99 04/03/20 16:38 75 20 120/68 04/03/20 16:35 76 18 122/68 04/03/20 16:34 74 100 04/03/20 16:32 69 18 125/69 04/03/20 16:29 81 100 04/03/20 15:53 20 04/03/20 15:51 99.3 F 68 135/71 Coding Level of Care Code None Diagnoses Supervision of normal intrauterine in multigravida Z34.80
[2020-04-03] MEDS ORDERED: SUPERCREAM 0.870% 15 GM JAR EXT PRN (19:50)
[2020-04-03] MEDS ORDERED: IBUPROFEN 600 MG TAB PO PRN (19:50)
[2020-04-03] MEDS ORDERED: ACETAMINOPHEN W/CODEINE #3 1 TAB PO PRN (19:50)
[2020-04-03] MEDS ORDERED: HYDROCORTISONE ACETATE 25 MG SUPP PR PRN (19:50)
[2020-04-03] MEDS ORDERED: BENZOCAINE 20% AER SPR 82.5 GM CAN EXT PRN (19:50)
[2020-04-03] MEDS ORDERED: DIPHTHERIA/TETANUS/PERTUSSIS 0.5 ML SYR/VIAL IM ONE (19:50)
[2020-04-03 20:12] LABS: Base Excess Cord Arterial Bld -2.7 mEq/L (-9-1.8); CO2 Cord Arterial Blood 39 mmHg (39.1-73.5); HCO3 Cord Arterial Blood 22 mmol/L (19.7-28.5); PO2 Cord Arterial Blood 41 mmHg (4.1-31.7); pH Cord Arterial Blood 7.37 (7.1-7.38)
[2020-04-03 20:17] LABS: Base Excess Cord Venous Blood -2.1 mEq/L (-7.7-1.9); Cord Venous Blood HCO3 23 mmol/L (18.4-26.8); Cord Venous Blood PCO2 39 mmHg (30.4-57.2); Cord Venous Blood PO2 39 mmHg (14.1-43.3); Cord Venous Blood pH 7.38 (7.20-7.44)
[2020-04-03] MEDS: DOCUSATE SODIUM 100 MG CAP PO SCH (21:15)
[2020-04-04] MEDS ORDERED: FERROUS SULFATE 325 MG TAB PO SCH (08:00)
[2020-04-04] MEDS ORDERED: PRENATAL VITAMIN 1 TAB PO SCH (08:00)
--- NOTE | 2020-04-04 08:02 | Obstetrical Progress Note ---
Date of Service April 04, 2020 Assessment & Plan (1) Supervision of normal intrauterine in multigravida: - doing well - desires 24hr d/c - instructions given - f/u in 6 weeks for pp check Subjective Ambulation: ambulating normally Feeding Type:: breast feeding Physical Exam Constitutional WD/WN, vitals as above Gastrointestinal (Abdomen) Fundus firm below umbilicus Musculoskeletal No deep calf tenderness Results & Data ([facility]) Vital Signs (Past 12 Hours) Vital Signs Temp Pulse Pulse Resp BP BP 04/04/20 04:15 98.4 F 68 18 113/70 04/03/20 23:30 99.0 F 70 16 124/73 04/03/20 21:29 86 124/62 04/03/20 21:00 98.1 F 18 04/03/20 20:59 78 129/70 04/03/20 20:28 68 135/56 L 04/03/20 20:16 72 149/62 H
[2020-04-04] MEDS: DOCUSATE SODIUM 100 MG CAP PO SCH ×2 (08:14→20:11)
[2020-04-04] MEDS: ACETAMINOPHEN 325 MG TAB PO PRN ×2 (08:14→15:37)
[2020-04-04 11:50] VITALS: TEMP 98.6
[2020-04-04 15:46] VITALS: PULSE 80; O2SAT 99
[2020-04-04 15:57] VITALS: BP 122/76
[2020-04-04] MEDS ORDERED: bisacodyL 5 MG TABEC PO SCH (20:00)
--- NOTE | 2020-04-06 09:25 | Delivery Summary ---
Vaginal Delivery Summary Date of Service April 03, 2020 Vaginal Delivery Summary Findings: Viable female with Apgars of 8 and 9. Baby delivered over small midline second-degree laceration. Cord gases and cord blood samples obtained. Placenta delivered spontaneously. Laceration repaired with 4 O Vicryl in a routine fashion. Estimated blood loss 300 cc. Labor note: 40 weeks confirmed via LMP. Sent to L&D floor after seeing OB at office and found to be in labor. Has been attending OB appointments regularly. Currently taking no medications. H/o R kidney removal (donated to in 2009) - Monthly urine cultures - Pre- Cr 0.92 06/2019 Contractions: since 2:30 AM 04/03 Fluid or Blood loss: fluid loss Movement: active Labs Blood type: O+ Antibody screen: negative H.3 Hct: 33.5 Wbc: 11.69 (08/27); pending repeat today Plt: 277 (08/27); pending repeat today Rubella: immune VDRL/RPR: nonreactive Gonorrhea: negative Chlamydia: negative HIV: negative HBsAg: negative GBS:negative Glucose tolerance x2: negative Cr: 0.73 (09/26) Upon admission the patient was 6 centimeters dilated in active labor. Anesthesia was consulted and an epidural was placed. An hour after placement of the epidural there had been no cervical change. Patient was started on Pitocin for augmentation protocol. Over the next hour the patient requested full dilatation and began her 2nd stage. She pushed for approximately 5 minutes delivering a viable female infant. Cord was clamped and cut, cord gases and cord blood samples were obtained. Placenta was delivered spontaneously. Inspection of the perineum showed a small midline laceration which was repaired with interrupted 4 0 Vicryl. Estimated blood loss was 300 cc. Sponge and needle count was correct.
== END 2020-04-04 21:01 | disposition home or self-care (01) | DRG 807 ==
LOC: OPB 15:33 → 4S1 15:35 → 4S2 21:50
DX: Z37.0 Single live birth; Z90.5 Acquired absence of kidney; Z3A.40 40 weeks gestation of pregnancy; O70.1 Second degree perineal laceration during delivery